=== PATIENT | male | born 1990 | race Caucasian/White ===

== ENCOUNTER 2019-02-10 14:53 | Inpatient (IN) ==
[2019-02-10] MEDS ORDERED: DESYREL PO PRN (16:21)
[2019-02-10] MEDS ORDERED: NICOTINE GUM BUCCAL PRN (16:21)
[2019-02-10] MEDS ORDERED: ZOFRAN IV PRN (16:21)
[2019-02-10] MEDS ORDERED: D5W 1,000 ML IV PRN (16:21)
[2019-02-10] MEDS ORDERED: IMODIUM PO PRN ×2 (16:21)
[2019-02-10] MEDS ORDERED: ZOFRAN IM PRN (16:21)
[2019-02-10] MEDS ORDERED: SENOKOT PO PRN (16:21)
[2019-02-10] MEDS ORDERED: MOTRIN PO PRN (16:21)
[2019-02-10] MEDS ORDERED: PHENOBARBITAL IV PRN (16:21)
[2019-02-10] MEDS ORDERED: DULCOLAX PR PRN (16:21)
[2019-02-10] MEDS ORDERED: NICODERM PATCH TD PRN (16:21)
[2019-02-10] MEDS ORDERED: ZOFRAN ODT PO PRN (16:21)
[2019-02-10] MEDS ORDERED: TUBERSOL ID ONE (16:21)
[2019-02-10] MEDS ORDERED: MAALOX PLUS LIQUID PO PRN (16:21)
[2019-02-10] MEDS ORDERED: SEROQUEL PO PRN (16:21)
[2019-02-10] MEDS ORDERED: TYLENOL PO PRN (16:21)
[2019-02-10 16:53] LABS: HEMATOCRIT 43.8 % (42.0-52.0); HEMOGLOBIN 15.4 g/dL (14.0-18.0); MCH 30.4 PG (27-31); MCHC 35.2 g/dL (33-37); MCV 86.6 FL (81-99); MPV 10.5 FL (7.4-10.4); RBC 5.06 XMIL (4.7-6.1); RDW 12.5 % (11.5-14.5); WBC 5.23 X1000 (4.8-10.8)
[2019-02-10 17:09] LABS: URINE SOURCE CLEAN CATCH
[2019-02-10 17:14] LABS: BILIRUBIN URINE NEGATIVE (NEGATIVE); BLOOD URINE NEGATIVE (NEGATIVE); CLARITY CLEAR (CLEAR); COLOR YELLOW; GLUCOSE URINE NEGATIVE (NEGATIVE); KETONE URINE NEGATIVE (NEGATIVE); LEUKOCYTES URINE NEGATIVE (NEGATIVE); NITRITE URINE NEGATIVE (NEGATIVE); PH URINE 6.5; PROTEIN URINE NEGATIVE (NEGATIVE); SP GRAVITY URINE 1.005; UROBILINOGEN URINE NORMAL
[2019-02-10 17:32] LABS: AGAP 15; ALBUMIN 4.9 g/dL (3.5-5.0); ALKALINE PHOSPHATASE 59 U/L (32-122); AMYLASE 30 U/L (20-200); BUN 5 mg/dL (8-22); CALCIUM 9.1 mg/dL (8.8-10.2); CHLORIDE 103 mmol/L (98-107); COSMO 282; CREATININE 0.8 mg/dL (0.7-1.2); ESTIMATED GFR > 60; GLUCOSE 124 mg/dL (70-104); GOT 21 U/L (10-34); GPT 20 U/L (10-44); LIPASE 29 U/L (13-60); POTASSIUM 3.8 mmol/L (3.5-5.1); SODIUM 142 mmol/L (136-145); TCO2 24 mmol/L (25-35); TOTAL PROTEIN 8.3 g/dL (6.3-8.3)
[2019-02-10 17:33] LABS: UR AMPHETAMINES QUAL NONE DETECTED (NONE DETECT); UR BARBITUATES QUAL NONE DETECTED (NONE DETECT); UR BENZODIAZEPIN QUAL NONE DETECTED (NONE DETECT); UR CANNABINOIDS QUAL NONE DETECTED (NONE DETECT); UR COCAINE QUAL NONE DETECTED (NONE DETECT); UR METHADONE QUAL NONE DETECTED (NONE DETECT); UR METHAMPHETAMINE QUAL NONE DETECTED (NONE DETECT); UR OPIATES QUAL NONE DETECTED (NONE DETECT); UR OXYCODONE QUAL NONE DETECTED (NONE DETECT); UR PCP QUAL NONE DETECTED (NONE DETECT); UR PROPOXYPHENE QUAL NONE DETECTED (NONE DETECT); UR TCA QUAL NONE DETECTED (NONE DETECT)
[2019-02-10] MEDS ORDERED: BENTYL PO PRN (18:38)
[2019-02-10] MEDS ORDERED: ROBAXIN PO PRN (18:38)
[2019-02-10] MEDS ORDERED: SALINE LOCK IV FLUID XX ONE (18:38)
[2019-02-10] MEDS ORDERED: M.V.I.-12 10 ML, FOLIC ACID 1 MG, MAGNESIUM SULFATE 1 GM, THIAMINE 100 MG in NS 1,000 ML IV ONE (18:38)
[2019-02-10] MEDS ORDERED: ATARAX PO PRN (18:38)
[2019-02-10] MEDS: LIBRIUM PO SCH (19:10)
[2019-02-11] MEDS: LIBRIUM PO SCH ×4 (00:03→18:44)
[2019-02-11] MEDS: PROTONIX PO SCH (06:08)
[2019-02-11] MEDS: VITAMIN B-1 PO SCH (11:37)
[2019-02-11] MEDS: FOLIC ACID PO SCH (11:37)
[2019-02-11] MEDS: THERA M PLUS PO SCH (11:37)
--- NOTE | 2019-02-11 23:43 | PROGRESS NOTE ---
DATE: 02/11/2019 SUBJECTIVE: The patient notes overall he is feeling a lot better. Still having some muscle aches, but tremors have improved. Denies any myalgias, fevers or chills. Denies any GI or issues currently. OBJECTIVE: Temperature 97.9 degrees, pulse 74, respiratory rate 18, BP 94/59.General: The patient is awake, alert. He is in no current respiratory distress. Very pleasant to talk with. HEENT: Normocephalic. Neck supple. Cardiovascular: Regular rate. No murmurs. Chest clear. Abdomen soft, nondistended. Extremities: Moves all extremities. Neurologic: No changes. ASSESSMENT: 1. Nausea and vomiting. 2. Abdominal pain. 3. Myalgias. 4. Tremors. 5. Paresthesias. 6. Paroxysmal sweating. 7. Alcohol abuse, withdrawal and stabilization. PLAN: Continue the patient in the hospital. Continue to follow. Continue Librium taper. Continue counseling. Further orders as needed. cc: David Benjamin MD
[2019-02-12] MEDS: LIBRIUM PO SCH ×2 (00:11→06:02)
[2019-02-12] MEDS: PROTONIX PO SCH (06:02)
[2019-02-12 07:53] VITALS: BP 124/50
[2019-02-12] MEDS: VITAMIN B-1 PO SCH (09:12)
[2019-02-12] MEDS: FOLIC ACID PO SCH (09:12)
[2019-02-12] MEDS: THERA M PLUS PO SCH (09:12)
--- NOTE | 2019-02-12 21:57 | DISCHARGE SUMMARY ---
ADMISSION DATE: 02/10/2019 DISCHARGE DATE: 02/12/2019 DISCHARGE DIAGNOSES: 1. Nausea and vomiting. 2. Abdominal pain. 3. Myalgias. 4. Tremors. 5. Paresthesias. 6. Paroxysmal sweating. 7. Alcohol abuse, withdrawal and stabilization. CONSULTATIONS: None. PROCEDURES: None. BRIEF HOSPITAL COURSE: The patient is a 28-year-old male who presented to [facility] secondary to nausea, vomiting, abdominal pain, tremors and myalgias. He had been drinking heavily. We admitted him to the hospital, placed him on Librium taper. Thankfully he had an uneventful hospital course. DISPOSITION: The patient will be discharged home. Greater than 30 minutes was spent in total care. I discussed with the patient that he needs to avoid all persons, places and situations in which he had been drinking. He needs outpatient life counseling as well as alcohol counseling. I discussed the use of naltrexone. A prescription was written. We will continue to follow. cc: David Benjamin MD
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
== END 2019-02-12 11:59 | disposition home or self-care (01) | DRG 897 ==
LOC: P.MEDSURG 15:42
PROVIDERS: ADMIT Family Medicine; ATTEND Family Medicine
CPT/HCPCS: 80053; 80104; 80301; 80305; 80307; 80320; 82055; 82150; 83690; 85027; 86580; A9270; G0431; G0434; G0477; G0480; G6040; J3411; J3475; J7030